=== PATIENT | female | born 1970 | race Caucasian/White ===

== ENCOUNTER 2024-06-09 13:26 | Outpatient (OUT) | payer OTHER, SELFPAY ==
--- NOTE | 2024-06-09 11:45 | VEINCLINIC_ITS ---
Documented by User: Arianna King RN 06/09/24 14:29 Vital Signs 06/09/24 13:46 Height 5 ft 5 in Weight 79.379 kg BMI 29.1 BP 120/78 BP Location Right Brachial BP Position Sitting BP Cuff Size Adult BP Source Manual Cuff Respiration 16 Pulse 68 Pulse Source Monitor Pulse Oximetry (%) 98 Oxygen Delivery Method Room Air Comment The patient's blood pressure is elevated. Varicose Veins Patient in this day for comprehensive consult for bilateral painful varicose veins. Referred by Dr. Merle Hernandez. Has been having BLE swelling for the past year. Worsening in the past few weeks with pain. Has tried compression stockings for 2 weeks with little to no relief. Patient is on her feet about 8-10 hours per day. Mele Grande MD personally performed the services described in this documentation, as scribed by Arianna King RN in my presence and it is both accurate and complete. Arianna Grande RN, am scribing for, and in the presence of, Dr. Mele Barrera and in the presence of the patient. thigh: bilateral, knee: bilateral, calf: bilateral, ankle: bilateral and chavez: bilateral aching, cramping, sharp and tender 2 months Worsened in recent months: Yes walking analgesics Reports muscle spasms of leg, fatigue, restless legs, limb pain, edema and leg edema History of lower extremity trauma: No Superficial thrombophlebitis: No Family history of varicose veins: unknown Has patient had previous lower extremity venous surgery: No Patient has previously received the following treatment(s) for lower extremity varicose veins: Reports none Does patient have a history of : yes Does patient intend to have future pregnancies: no Has patient had lower extremity venous scan with relux testing: Yes Support hose used: Yes Problems walking or doing physical activity: Yes How does it affect you: difficulty walking Do you walk much: Yes Do you stand much: Yes Review of Systems ROS Narrative Mele Grande MD personally performed the services described in this documentation, as scribed by Arianna King RN in my presence and it is both accurate and complete. Arianna Grande RN, am scribing for, and in the presence of, Dr. Mele Barrera and in the presence of the patient. Status of ROS 10 or more systems reviewed and unremark able except as noted in history and below Cardiovascular Reports: edema and swelling of feet/ankles Musculoskeletal Reports: extremity pain, extremity swelling, joint pain, joint swelling and muscle cramps PFSH PFSH Medical History (Updated 06/09/24 @ 14:17 by Arianna King RN) Pain due to varicose veins of both lower extremities ?I83.813 - Varicose veins of bilateral lower extremities with pain (ICD-10) Anxiety and depression ?F41.9 - Anxiety disorder, unspecified (ICD-10) ?F32.A - Depression, unspecified (ICD-10) Surgical History (Updated 06/09/24 @ 13:57 by Arianna King RN) H/O carpal tunnel repair ?Z98.890 - Other specified postprocedural states (ICD-10) Family History (Updated 06/09/24 @ 13:57 by Arianna King RN) Other Family history not known due to adoption Social History (Updated 06/09/24 @ 13:58 by Arianna King RN) Within the past year, how often did you have a drink containing alcohol: monthly or less Within the past year, how often did you have six or more drinks on one occasion: never Do you use any of these nicotine containing products: vaping products Non-prescribed substance use: denies use Meds Home Medications and Allergies Home Medications ?Medication ?Instructions ?Recorded ?Confirmed ?Type diclofenac sodium 75 mg 75 mg PO BID 06/09/24 06/09/24 History tablet,delayed release escitalopram oxalate 10 mg tablet 10 mg PO DAILY 06/09/24 06/09/24 History (Lexapro) hydroxyzine HCl 25 mg tablet 25 mg PO BID 06/09/24 06/09/24 History Allergies Allergy/AdvReac Type Severity Reaction Status Date / Time No Known Drug Allergies Allergy Unverified 06/09/24 14:01 Exam Narrative Exam Narrative: IMele MD personally performed the services described in this documentation, as scribed by Arianna King RN in my presence and it is both accurate and complete. IArianna RN, am scribing for, and in the presence of, Dr. Mele Barrera and in the presence of the patient. Constitutional Documenting provider has reviewed patient's vital signs: yes Common normals: oriented x3 Nutritional appearance: overweight Lymph Lymphatic: no lymphedema noted Cardio Peripheral pulses: posterior tibial pulses present and dorsalis pedis pulses present Extremity General: calf tenderness, edema and other findings Right lower extremity: lower leg Right lower leg: inspection and palpation Left lower extremity: lower leg Left lower leg: inspection and palpation Neuro Common normals: oriented x3 Psych Appearance: unkempt Attitude: calm Speech: normal speech Mood and affect: flat affect Attention/concentration: attention grossly impaired Other: Patient keeps eyes closed during 80% of evaluation. When nurse walked out to waiting room to bring patient back in room her eyes were closed and her head was tilted back against the wall. Her paperwork she did not even complete writing her first name. She arouses to voice easily throughout exam and reports she did not get much sleep last night and she took pain medication today for her leg. Assessment and Plan Assessment and Plan (1) Pain due to varicose veins of both lower extremities: Plan Explained vein anatomy and physiology to patient. Explained the development of varicose veins to patient.? Explained varicose vein treatments to patient, including laser ablation, microfoam chemical ablation (Varithena), injection sclerotherapy and microphlebectomy.? Explained potential risks and benefits of varicose vein treatments.? Patient verbalizes understanding and wants to pursue varicose vein treatment.? Dr. Mercer examines patient and reviews results of bilateral leg reflux u/s.? Patient and Dr. Mercer creates a plan of care.? Patient also agrees to purchase bilateral thigh high compression stockings and wear them as educated.? Patient also educated on exercise and rest elevation of bilateral legs. Patient will need to wear compression stockings for 3 months then schedule follow up. IMele MD personally performed the services described in this documentation, as scribed by Arianna King RN in my presence and it is both accurate and complete. IArianna RN, am scribing for, and in the presence of, Dr. Mele Barrera and in the presence of the patient. Documented by User: Madhuri Daily 06/09/24 15:39 Vital Signs 06/09/24 13:46 Height 5 ft 5 in Weight 79.379 kg BMI 29.1 BP 120/78 BP Location Right Brachial BP Position Sitting BP Cuff Size Adult BP Source Manual Cuff Respiration 16 Pulse 68 Pulse Source Monitor Pulse Oximetry (%) 98 Oxygen Delivery Method Room Air Comment The patient's blood pressure is elevated. PFSH PFSH Medical History (Updated 06/09/24 @ 14:17 by Arianna King RN) Pain due to varicose veins of both lower extremities ?I83.813 - Varicose veins of bilateral lower extremities with pain (ICD-10) Anxiety and depression ?F41.9 - Anxiety disorder, unspecified (ICD-10) ?F32.A - Depression, unspecified (ICD-10) Surgical History (Updated 06/09/24 @ 13:57 by Arianna King RN) H/O carpal tunnel repair ?Z98.890 - Other specified postprocedural states (ICD-10) Family History (Updated 06/09/24 @ 13:57 by Arianna King RN) Other Family history not known due to adoption Social History (Updated 06/09/24 @ 13:58 by Arianna King RN) Within the past year, how often did you have a drink containing alcohol: m onthly or less Within the past year, how often did you have six or more drinks on one occasion: never Do you use any of these nicotine containing products: vaping products Non-prescribed substance use: denies use Meds Home Medications and Allergies Home Medications ?Medication ?Instructions ?Recorded ?Confirmed ?Type diclofenac sodium 75 mg 75 mg PO BID 06/09/24 06/09/24 History tablet,delayed release escitalopram oxalate 10 mg tablet 10 mg PO DAILY 06/09/24 06/09/24 History (Lexapro) hydroxyzine HCl 25 mg tablet 25 mg PO BID 06/09/24 06/09/24 History Allergies Allergy/AdvReac Type Severity Reaction Status Date / Time No Known Drug Allergies Allergy Unverified 06/09/24 14:01 Results Imaging Venous US: Radiologist's impression: Severe reflux in bilateral GSVs, AASVs, and right SSV, along with multiple varicose veins bilateral. 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 IMele MD personally performed the services described in this documentation, as scribed by Arianna King RN in my presence and it is both accur ate and complete. I, Arianna King RN, am scribing for, and in the presence of, Dr. Mele Barrera and in the presence of the patient. Assessment and Plan Assessment and Plan (1) Pain due to varicose veins of both lower extremities: Plan Explained vein anatomy and physiology to patient. Explained the development of varicose veins to patient.? Explained varicose vein treatments to patient, including laser ablation, microfoam chemical ablation (Varithena), injection sclerotherapy and microphlebectomy.? Explained potential risks and benefits of varicose vein treatments.? Patient verbalizes understanding and wants to pursue varicose vein treatment.? Dr. Barrera examines patient and reviews results of bilateral leg reflux u/s.? Patient and Dr. Barrera creates a plan of care that consists of EVLT bilateral GSV, bilateral AASV, and right SSV and Varithena/microfoam of bilateral legs.? Patient also agrees to purchase bilateral thigh high compression stockings and wear them as educated.? Patient also educated on exercise and rest elevation of bilateral legs. Patient will need to wear compression stockings for 3 months then schedule follow up. IMele MD personally performed the services described in this documentation, as scribed by Arianna King RN in my presence and it is both accurate and complete. I, Arianna King RN, am scribing for, and in the presence of, Dr. Mele Barrera and in the presence of the patient.
--- NOTE | 2024-06-09 11:46 | W.VEIN ---
Discharge Plan Discharge Disposition: Home, Self-Care Outpatient Diagnostics: [facility] Facility EST LMTD (Routine) Timeframe: 1 Year Facility: [facility] - Location: [facility] Ordered By: Mele Barrera Plan of Treatment: compression stockings for 3 months then follow up with physcian Patient Instructions: Endovenous Ablation (GEN) Print Language: Sri Lankan
[2024-06-09 13:46] VITALS: BP 120/78; PULSE 68; O2SAT 98; BMI 29.1
--- NOTE | 2024-06-09 13:50 | VEIN_ITS ---
Patient Name: LUNA MCCLENDON MR#: [id number] : 1970 Exam Date: 06/09/2024 Ordering Doctor: DR DAGMAR BREWER M.D. RADIOLOGY REPORT PROCEDURE: VC EXT VENOUS REFLUX PUJA LMTD COMPARISON: None. INDICATIONS: I83.813 Painful varicose veins bilateral TECHNIQUE: Duplex imaging of the lower extremity to assess the deep and superficial venous system for the presence of deep or superficial venous incompetence and to document the location and severity of disease. The study includes evaluation of the great saphenous vein (GSV), anterior accessory saphenous vein (AASV) and small saphenous vein (SSV). Patient scanned in reverse Trendelenburg and standing. FINDINGS: RIGHT LOWER EXTREMITY: Saphenofemoral Junction Reflux: Yes 6.8mm 2.2 sec GSV: Diam (mm) Reflux/ Time (sec) Proximal Thigh 5.9 Yes 3.1 Mid Thigh 7.4 Yes 4.8 Distal Thigh 7.2 Yes 2.8 Prox Calf 5.3 Yes 0.6 Mid Calf 3.7 Yes 0.6 Saphenopopliteal Junction Reflux: 5.6mm Yes 1.1 SSV: Proximal Calf 5.5 Yes 0.5 Mid Calf 7.3 Yes 4.5 AASV: Proximal Thigh 5.5 Yes 0.8 Mid Thigh 3.8 Yes 0.6 Distal Thigh Thrombi: Partial thrombus in mid SSV. Compressibility: Partial compression of mid SSV. Flow: Mild deep venous reflux. Preforator: Dist/med lower leg/ankle measures 5.3 mm with 1.5s reflux. Distal medial lower leg 3.2 mm with 0.9s reflux. Tech Note: SSV is tortuous approximately 8-9 cm from SPJ. Incompetent varicose vein medial knee measures 8.0 mm with 4.4s reflux. Varicose vein mid posterior calf measures 5.8 mm with 4.7s reflux. Varicose vein mid lateral thigh measures 5.9 mm with 2.4s reflux. Varicose vein mid lateral calf measures 4.8 mm with 1.4s reflux. LEFT LOWER EXTREMITY: Saphenofemoral Junction Reflux: Yes 7.9 mm 0.7 sec GSV: Diam (mm) Reflux/Time (sec) Proximal Thigh 5.8 Yes 1.2 Mid Thigh 5.5 Yes 1.2 Distal Thigh 5.2 Yes 0.9 Prox Calf 4.9 Yes 3.3 Mid Calf 4.5 Yes 0.4 Saphenopopliteal Junction Relux: 3.4 mm No SSV: Proximal Calf 1.9 No Mid Calf 4.2 Yes 0.7 AASV: Proximal Thigh 6.0 Yes 1.9 Mid Thigh 4.9 Yes 1.1 Distal Thigh Thrombi: Thrombus of SSV prox- mid. Compressibility: Flow: Moderate deep venous reflux. Sewage Screen Operator: Distal medial lower leg 4.8 mm with 1.1s reflux. Mid medial lower leg 4.1 mm with 2.1s reflux. Mid post calf 3.9 mm with 1.0s reflux. Tech Note: Incompetent varicose vein distal anterior/medial thigh measures 4.5 mm with 2.9s reflux. Varicose vein mid medial calf measures 4.0 mm with 0.8s reflux. CONCLUSION: 1. Abnormally dilated incompetent bilateral great saphenous veins, bilateral anterior accessory saphenous veins, and right small saphenous vein. 2. 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 Dictated by: Dagmar Brewer M.D. on 06/09/2024 at 14:51 Approved by: Dagmar Brewer M.D. on 06/09/2024 at 15:52
--- NOTE | 2024-06-09 13:50 | VEIN_ITS ---
Patient Name: LUNA MCCLENDON MR#: [id number] : 1970 Exam Date: 06/09/2024 Ordering Doctor: DR DAGMAR BREWER M.D. RADIOLOGY REPORT PROCEDURE: [facility] FACILITY EST [facility] - OFFICE VISIT INITIAL COMPARISON: None. PROGRESS NOTES: [age] year old female who presents with a 1 year history of lower extremity pain, swelling, cramping, spasm, fatigue. The patient's leg symptoms symmetric bilaterally. There has been a progression of symptoms over the past 5 months. This increases with prolonged like dependency. The patient describes an improvement with exercise and analgesics. The patient denies any signs and symptoms to suggest arterial ischemia. The patient describes a family history for: Unknown/patient adopted. The patient has drinking and smoking history of occasional alcohol consumption. No tobacco use. Patient does use of vaping products.. Patient has a past medical history significant for none pertinent. The patient denies a history of deep venous thrombus or pulmonary embolus. See separate history and physical for medication list. No prior treatment for varicose or spider veins. Two week use of compression stockings. After review of nurse notes, history and physical exam I discussed at length the pathophysiology of venous hypertension and possible treatments, therapies and strategies available. We discussed at length the importance of elevating the lower extremities above the level of the heart, increased physical activity and compression stocking use. Ultrasound venous reflux study performed today was discussed at length with the patient. The report demonstrates abnormally dilated and markedly incompetent great saphenous veins bilaterally, anterior accessory saphenous veins bilaterally, and right small saphenous vein.. PHYSICAL EXAM: The right leg demonstrates several varicosities, numerous spider veins, no ulceration, moderate edema, no skin discoloration. The left leg demonstrates several varicosities, numerous spider veins, no ulceration, moderate edema, no skin discoloration. Both thighs, legs and feet were symmetrically warm to the touch. Good posterior tibial and dorsalis pedis pulses were present bilaterally. VEIN/VC Facility EST Comprehensive IMPRESSION: 1. Bilateral lower extremity venous insufficiency 2. Bilateral lower extremity varicose veins 3. Moderate bilateral lower extremity subcutaneous edema 4. No flow significant arterial disease 5. CEAP: C3, AP, , VT PLAN: 1. Continued use of compression stockings 2. Elevated legs and increased physical activity symptomatic relief 3. Endovenous laser ablation of left great saphenous, right great saphenous, left anterior accessory saphenous, right anterior accessory saphenous, left small saphenous veins. 4. Microfoam chemical ablation of the incompetent branch saphenous varicosities. 5. Sclerotherapy. Nurse notes, history and physical were reviewed and confirmed, see attached forms. The nurse was present throughout the physical exam and consultation Dictated by: Dagmar Brewer M.D. on 06/09/2024 at 15:52 Approved by: Dagmar Brewer M.D. on 06/09/2024 at 16:00
--- NOTE | 2024-06-09 15:39 | P.DS_ITS ---
Discharge Plan Discharge Disposition: Home, Self-Care Outpatient Diagnostics: [facility] Facility EST LMTD (Routine) Timeframe: 1 Year Facility: [facility] - Location: Vein Center Ordered By: Mele Barrera Plan of Treatment: compression stockings for 3 months then follow up with physcian Patient Instructions: Endovenous Ablation (GEN) Print Language: Montenegrin Discharge Date/Time: 06/09/24 15:43
== END 2024-06-09 15:43 | disposition home or self-care (01) ==
PROVIDERS: PCP Nurse Practitioner Family; Visit Provider Nurse Practitioner Family
DX: I83.813 Varicose veins of bilateral lower extremities with pain (principal)
CPT/HCPCS: 93970; G0463

== ENCOUNTER 2024-06-14 08:40 | Outpatient (OUT) | payer OTHER, SELFPAY ==
--- OUTSIDE RECORDS SUMMARY | 2024-06-14 09:05 | XMS_ITS | CCD ---
Author Organization [facility] Inform ion Partnership [facility] Care Team Providers Care Regulatory Affairs Associate Name Role Phone REQUEST, NONE LISTED Primary Care Unavailable BRANDI BELTRAN Admitting Unavailable BRANDI BELTRAN Attending Unavailable MELE BARRERA Consulting Unavailable BRANDI BELTRAN Consulting Unavailable TIFFANY ARZOLA Attending Unavailable Aroldo Londono Attending Unavailab Aroldo Moraes Admitting Unavailab mike Problems Problem Classification Problem Date Documented Da te Episodic/Chronic External cause codes: Fall (1 source) Fall on same level, unspecified, initial encounter; Translations: [FALL SAME LEVEL UNSPECIFIED INITIAL] Onset: 11-11-2018 Other connective tissue disease (3 sources) Pain in left upper arm; Translations: [PAIN IN LEFT UPPER ARM] Onset: 11-09-2018 Episodic Sprains and strains (1 source) Unspecified sprain of left wrist, initial encounter; Translations: [UNSPECIFIED SPRAIN LT WRIST INITIAL] Onset: 11-11-2018 Episodic Results Test Name Value Interpretation Reference Range Facil ity XR SHOULDER LEFT (MIN 2 VIEW S)on 07-11-2021 XR SHOULDER LEFT (MIN 2 VIEWS) EXAMINATION: 3 XRAY VIEWS OF THE LEFT SHOULDER 07/11/2021 10:56 am COMPARISON: 10/01/2014 HISTORY: ORDERING SYSTEM PROVIDED HISTORY: Left shoulder pain TECHNOLOGIST PROVIDED HISTORY: Left shoulder pain 50-year-old female with left shoulder pain FINDINGS: Subcortical cystic changes at the humeral head. Visualized left-sided ribs appear intact. No acute fracture or dislocation. Left AC and glenohumeral joints grossly unremarkable. IMPRESSION: No acute fracture or dislocation. Interpreted by: Shon Majano MD Signed by: Shon Majano MD 07/11/21 Final result Normal [facility] XR WRIST LT MIN 3 Von 2018 XR WRIST LT MIN [address] [place] [address] Patient: HERMES DIETRICH Exam Date: 11/09/2018 : 1970 Gender:F Ordering : DR. BRANDI BELTRAN . Admission #: [id number] Family : Order #: [id number] CLICK HERE TO VIEW EXAM RADIOLOGY REPORT PROCEDURE: RADIOGRAPH WRIST LEFT MIN 3 VIEWS COMPARISON: None. INDICATIONS: Acute left lateral wrist pain after fall FINDINGS: BONES: Mild degenerative changes of the scaphoid and suspected small cyst within the distal aspect. The scapholunate joint is prominent, but within normal limits. No acute fracture dislocation. SOFT TISSUES: No visible soft tissue swelling or radiopaque foreign body. OTHER: Negative. CONCLUSION: 1. No acute bone abnormality. 2. Mild degenerative changes. Dictated by: Mele Barrera M.D. on 11/09/2018 at 08:11 Approved by: Mele Barrera M.D. on 11/09/2018 at 08:15 Normal [facility] Encounters Encounter Date Encounter Type Care Provider Facility Start: 02-12-2023 ambulatory Aroldo Rodriguez acility:[facility] Start: 07-11-2021 End: 07-11-2021 Emergency department patient visit [facility] Start: 11-09-2018 End: 11-09-2018 Patient encounter procedure NONE LISTED REQUEST Facility: Payers Date Payer Category Payer Self-pay 2021 Unknown [id number] 1970 Unknown [id number] 1970 Unknown [id number] 1959 Self-pay [id number] Summary Purpose Family History No Family History Records FoundNo Family History Records FoundNo Family History Records Found Advance Directives No Advanced Directives Records FoundNo Advanced Directives Records FoundNo Advanced Directives Records Found Additional Source Comments INFORMATION SOURCE (unrecogn ized section and content) DATE CREATED AUTHOR 11/14/2018 [facility] DATE CREATED AUTHOR AUTHOR'S ORGANIZ ATION 07/12/2021 [facility] DATE CREATED AUTHOR AUTHOR'S ORGANIZ ATION 07/25/2023 [facility] FOR RECORDS PERTAINING TO PATIENTS WHO ARE OR HAVE BEEN ENROLLED IN A CHEMICAL DEPENDENCY/SUBSTANCEABUSE PROGRAM, SOME INFORMATION MAY BE OMITTED. This clinical summary was aggregated from multiple sources. Caution should be exercised in using it in the provision of clinical care. This summary normalizes information from multiple sources, and as a consequence, information in this document may materially change the coding, format and clinical context of patient data. In addition, data may be omitted in some cases. CLINICAL DECISIONS SHOULD BE BASED ON THE PRIMARY CLINICAL RECORDS. [facility] [employer] provides no warranty or guarantee of the accuracy or completeness of information in this document.
[2024-06-14 09:59] LABS: Basophils Percent Auto 0.2 % (0.2-2.0); Hematocrit 40.8 % (36.0-48.0); Hemoglobin 13.5 g/dL (12.0-16.0); Immature Granulocytes Abs Auto 0.01 10^3/uL (0.00-0.03); Immature Granulocytes Pct Auto 0.2 % (0.0-0.5); Lymphocytes Absolute Auto 1.2 10^3/uL (1.2-3.8); Lymphocytes Percent Auto 23.1 % (20.5-60.0); Mean Corpuscular HGB Conc 33.1 g/dL (29.9-35.2); Mean Corpuscular Hemoglobin 29.9 pg (26.7-34.0); Mean Corpuscular Volume 90.3 fL (81.0-99.0); Mean Platelet Volume 10.4 fL (9.5-13.5); Monocytes Absolute Auto 0.5 10^3/uL (0.3-0.8); Monocytes Percent Auto 10.5 % (1.7-12.0); Neutrophils Absolute Auto 3.3 10^3/uL (1.4-6.5); Platelet Count 242 10^3/uL (150-450); Red Blood Count 4.52 10^6/uL (4.20-5.40); Red Cell Distribution Width 12.6 % (11.0-15.0); White Blood Count 5.1 10^3/uL (4.0-11.0)
[2024-06-14 10:18] LABS: Estimated Average Glucose 100 mg/dL; Glycohemoglobin A1C 5.1 % (4.5-6.2)
[2024-06-14 10:35] LABS: Alanine Aminotransferase 36 U/L (14-59); Albumin Globulin Ratio 0.8; Albumin Level 2.4 g/dL (3.4-5.0); Alkaline Phosphatase 63 U/L (46-116); Anion Gap 10.7; Aspartate Amino Transferase 22 U/L (15-37); BUN Creatinine Ratio 21.1; Bilirubin Total 0.4 mg/dL (0.2-1.0); Calcium 8.4 mg/dL (8.5-10.1); Carbon Dioxide 28.4 mmol/L (21.0-32.0); Chloride 110 mmol/L (98-107); Chol HDL Ratio 4.3; Cholesterol 185 mg/dL (<=200); Estimated GFR (African America >60 (>=60 mL/min/1.73m^2); Estimated GFR (Non-African Ame >60 (>=60 mL/min/1.73m^2); Free T3 1.83 pg/mL (2.18-3.98); Globulin 3.2 g/dL; Glucose 102 mg/dL (74-106); HDL Cholesterol 43 mg/dL (40-60); LDL Cholesterol Calculated 116.6 mg/dL; Potassium 4.1 mmol/L (3.5-5.1); Sodium 145 mmol/L (136-145); Thyroid Stimulating Hormone 1.642 uIU/mL (0.358-3.740); Total Protein 5.6 g/dL (6.4-8.2); Triglycerides 127 mg/dL (<=150); VLDL CHOLESTEROL 25.4 mg/dL
[2024-06-15 11:10] LABS: Insulin 3.8 uIU/mL (2.6-24.9)
== END 2024-06-14 08:41 | disposition home or self-care (01) ==
LOC: LAB 08:49
PROVIDERS: PCP Nurse Practitioner Family; Visit Provider Nurse Practitioner Family
DX: Z00.00 Encounter for general adult medical examination without abnormal findings (principal)
CPT/HCPCS: 36415; 80053; 80061; 83036; 83525; 84436; 84443; 84481; 85025

== ENCOUNTER 2024-10-26 16:25 | Emergency (ER) | payer OTHER, SELFPAY ==
[2024-10-26 16:33] VITALS: BP 143/99; PULSE 77; TEMP 36.8; O2SAT 98; BMI 30.8
--- NOTE | 2024-10-26 16:38 | ED.GENADUL1 ---
HPI HPI - General Adult General Chief complaint: Extremity Injury, Upper Stated complaint: FALL Time Seen by Provider: 10/26/24 16:28 Source: patient Mode of arrival: walk-in Limitations: no limitations History of Present Illness HPI narrative: 54-year-old female presents to the emergency department for pain in her right hand and wrist. She fell 2 or 3 weeks ago and it has been hurting since. She points mostly to the thenar eminence and the dorsum of the wrist. No other injury was sustained. It hurts more to move it. She has not yet sought medical care. Related Data Home Medications ?Medication ?Instructions ?Recorded ?Confirmed diclofenac sodium 75 mg 75 mg PO BID 06/09/24 10/26/24 tablet,delayed release escitalopram oxalate 10 mg tablet 20 mg PO DAILY 06/09/24 10/26/24 (Lexapro) hydroxyzine HCl 25 mg tablet 25 mg PO BID 06/09/24 10/26/24 Allergies Allergy/AdvReac Type Severity Reaction Status Date / Time No Known Drug Allergies Allergy Unverified 10/26/24 16:38 Opioid HPI Opioid Management Most Recent Opioid Data: No Data to Display Review of Systems ROS Narrative A ten point review of systems is negative except as noted above. PFSH [facility] Medical History (Updated 10/26/24 @ 17:16 by Terrell Vela MD) Pain due to varicose veins of both lower extremities ?I83.813 - Varicose veins of bilateral lower extremities with pain (ICD-10) Anxiety and depression ?F41.9 - Anxiety disorder, unspecified (ICD-10) ?F32.A - Depression, unspecified (ICD-10) Surgical History (Updated 06/09/24 @ 13:57 by Arianna King RN) H/O carpal tunnel repair ?Z98.890 - Other specified postprocedural states (ICD-10) Family History (Updated 06/09/24 @ 13:57 by Arianna King RN) Other Family history not known due to adoption Social History (Updated 06/09/24 @ 13:58 by Arianna King RN) Within the past year, how often did you have a drink containing alcohol: monthly or less Within the past year, how often did you have six or more drinks on one occasion: never Do you use any of these nicotine containing products: vaping products Non-prescribed substance use: denies use Little interest or pleasure in doing things: not at all Feeling down, depressed, or hopeless: not at all Exam Narrative Exam Narrative: Nurses note and vital signs reviewed and patient is not hypoxic. General: The patient appears well and in no apparent distress. Patient is resting comfortably on cart. Skin: Warm, dry, no pallor noted. There is no rash noted. Head: Normocephalic, atraumatic Eye: Normal conjunctiva, no drainage Ears, Nose, Mouth, and Throat: oral mucosa is moist. Nares patent. Cardiovascular: Regular Rate and Rhythm Respiratory: Patient is in no distress, no accessory muscle use, lungs are clear to auscultation, no wheezing, rales or rhonchi Back: non-tender GI: Soft and nontender Musculoskeletal: The right hand and wrist are examined. The fingers have full range of motion as does the wrist. She has some diffuse tenderness in the thenar eminence and the dorsum of the wrist. Skin intact. Neurological: A&O, normal speech Psychiatric: Cooperative Constitutional Vital Signs, click to edit/add: Last Vital Signs Temp 98.3 F 10/26/24 16:33 Pulse 77 10/26/24 16:33 Resp 16 10/26/24 16:33 BP 143/99 H 10/26/24 16:33 Pulse Ox 98 10/26/24 16:33 O2 Del Method Room Air 10/26/24 16:33 Course Vital Signs Vital signs: Vital Signs Temperature 98.3 F 10/26/24 16:33 Pulse Rate 77 10/26/24 16:33 Respiratory Rate 16 10/26/24 16:33 Blood Pressure 143/99 H 10/26/24 16:33 Pulse Oximetry 98 10/26/24 16:33 Oxygen Delivery Method Room Air 10/26/24 16:33 Temperature 98.3 F 10/26/24 16:33 Pulse Rate 77 10/26/24 16:33 Respiratory Rate 16 10/26/24 16:33 Blood Pressure 143/99 H 10/26/24 16:33 Pulse Oximetry 98 10/26/24 16:33 Oxygen Delivery Method Room Air 10/26/24 16:33 Medical Decision Making MDM Narrative Medical decision making narrative: X-rays per radiologist showed no acute findings. Wrist splint applied, application checked by me and found to be appropriate, she is neurovascular intact. Treatment diagnosis and follow-up were discussed with the patient. Differential Diagnosis Differential Diagnosis: Sprain, strain, fracture Imaging Data Right wrist and hand x-rays: Radiologist's impression: Soft tissue swelling without acute osseous abnormality evident. Mild to moderate degenerative changes Discharge Plan Discharge Chief Complaint: Extremity Injury, Upper Clinical Impression: Right wrist sprain Patient Disposition: Home, Self-Care Time of Disposition Decision: 17:16 Prescriptions / Home Meds: No Action escitalopram oxalate [Lexapro] 10 mg tablet 20 mg PO DAILY hydroxyzine HCl 25 mg tablet 25 mg PO BID diclofenac sodium 75 mg tablet,delayed release (DR/EC) 75 mg PO BID Print Language: Nigerien Instructions: Wrist Sprain (ED) Referrals: MAGALIE GONZALEZ [Primary Care Provider] - 1 week
--- OUTSIDE RECORDS SUMMARY | 2024-10-26 16:40 | XMS_ITS | CCD ---
Author Organization [facility] Inform ion Partnership [facility] Care Team Providers Care Registered Nurses Name Role Phone REQUEST, NONE LISTED Primary [...] Shon Majano MD 07/11/21 Final result [facility] XR WRIST LT MIN 3 Von 2018 XR WRIST LT MIN 3 [address] [place] [address] Patient: HERMES DIETRICH Exam Date: 11/09/2018 : 1970 Gender:F Ordering : DR. BRANDI BELTRAN . Admission #: [id number] Family : Order #: [id number] CLICK HERE TO VIEW EXAM RADIOLOGY REPORT [...] Barrera M.D. on 11/09/2018 at 08:15 Normal [facility] Encounters Encounter Date Encounter Type Care Provider Facility Start: 02-12-2023 ambulatory Aroldo Rodriguez acility:[facility] Start: 07-11-2021 End: 07-11-2021 Emergency department patient visit [facility] Start: 11-09-2018 End: 11-09-2018 Patient encounter procedure NONE LISTED REQUEST Facility: Payers Date Payer Category Payer Self-pay 2021 Unknown [id number] 1970 Unknown [id number] 1970 Unknown [id number] 1959 Self-pay [id number] Summary Purpose Family History No Family History Records FoundNo Family History Records FoundNo Family History Records Found Advance Directives No Advanced Directives Records FoundNo Advanced Directives Records FoundNo Advanced Directives Records Found Additional Source Comments INFORMATION SOURCE (unrecogn ized section and content) DATE CREATED AUTHOR 11/14/2018 [facility] DATE CREATED AUTHOR AUTHOR'S ORGANIZ ATION 07/12/2021 [facility] DATE CREATED AUTHOR AUTHOR'S ORGANIZ ATION 07/25/[address] [facility] FOR RECORDS PERTAINING TO PATIENTS WHO [...] BE BASED ON THE PRIMARY CLINICAL RECORDS. [facility] [employer] provides no warranty or guarantee of the accuracy or completeness of information in this document.
--- NOTE | 2024-10-26 16:46 | PC.NURSE ---
Pain to right hand and wrist, no redness, swelling or bruising at site.
== END 2024-10-26 17:31 | disposition home or self-care (01) ==
PROVIDERS: Emergency Provider Emergency Medicine; PCP Nurse Practitioner Family
DX: S63.501A Unspecified sprain of right wrist, initial encounter (principal); F17.290 Nicotine dependence, other tobacco product, uncomplicated; W19.XXXA Unspecified fall, initial encounter
CPT/HCPCS: 73110; 73130; 99283

== ENCOUNTER 2024-11-11 14:35 | Outpatient (OUT) | payer OTHER, SELFPAY ==
--- NOTE | 2024-11-11 | XR_ITS ---
[facility] [place] [id number] Patient Name: LUNA MCCLENDON MRN: [id number] date: 1970 Sex: F Assigned Patient Location: [facility] Current Patient Location: [facility] Accession/Order Number: [id number] Exam Date: 11/11/2024 16:11 Report Date: 11/11/2024 16:14 At the request of: MAGALIE GONZALEZ Procedure: XR wrist RT min 3V RIGHT WRIST - 3 views CLINICAL HISTORY: Posterior right wrist pain. Fall 3 weeks ago. COMPARISON: Right wrist series 10/26/2024 FINDINGS: Bones are grossly demineralized. No acute bony process is seen. Carpus demonstrates degenerative changes with widening of the scapholunate space similar to the prior study. There is stable presumed subluxation of the capitate with respect to the lunate. Negative ulnar variance a 3 mm. XR/XR wrist RT min 3V IMPRESSION: DEGENERATIVE CHANGES INVOLVING THE CARPUS WITH WIDENING OF THE SCAPHOLUNATE SPACE AND SUBLUXATION OF THE CAPITATE WITH RESPECT TO THE LUNATE SUGGESTIVE OF LIGAMENTOUS INJURY. NO FRACTURE IS SEEN. Impression dictated by: Gold Cottrell Jr., D.O.11/11/2024 4:14 PM Dictation Location: [employer] [facility] Electronically authenticated by: [id number] Y Date: 11/11/2024 16:14
== END 2024-11-11 14:36 | disposition home or self-care (01) ==
LOC: RAD 14:38
PROVIDERS: PCP Nurse Practitioner Family; Visit Provider Nurse Practitioner Family
DX: M25.531 Pain in right wrist (principal); M25.831 Other specified joint disorders, right wrist; M19.031 Primary osteoarthritis, right wrist
CPT/HCPCS: 73110

== ENCOUNTER 2024-11-22 19:15 | Emergency (ER) | payer OTHER, SELFPAY ==
[2024-11-22 19:19] VITALS: BP 150/106; PULSE 94; TEMP 36.6; O2SAT 100; BMI 31.6
--- NOTE | 2024-11-22 19:19 | ECG_ITS ---
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 Measurements Intervals Mccammon Rate: 78 P: 74 NE: 182 QRS: -28 QRSD: 80 T: 69 QT: 386 QTc: 419 Interpretive Statements 1100 Sinus rhythm 7202 Moderate left axis deviation borderline ECG No previous ECG available for comparison Electronically Signed On 11-23-2024 19:55:52 EDT by BOBBI CAMP M.D.
--- NOTE | 2024-11-22 19:27 | ED_ITS ---
HPI HPI - General Adult General Chief complaint: Neuro Symptoms/Deficit Stated complaint: htn anxiety Time Seen by Provider: 11/22/24 19:20 Source: patient and caregiver Mode of arrival: ambulance Limitations: no limitations History of Present Illness HPI narrative: patient presents concerned her BP is elevated. BP at work 130s/90s. No headache or chest pain. No weakness or dyspnea. she took her BP again at the [facility] and it was elevated at 150/100 and she decided to come in for evaluation she is wearing a splint on the right wrist and states she has been using her left hand more now because of the problem with the right wrist. states the left hand feels tingling but not weak. No tingling of the left arm or elsewhere Related Data Home Medications ?Medication ?Instructions ?Recorded ?Confirmed diclofenac sodium 75 mg 75 mg PO BID 06/09/24 10/26/24 tablet,delayed release escitalopram oxalate 10 mg tablet 20 mg PO DAILY 06/09/24 11/22/24 (Lexapro) hydroxyzine HCl 25 mg tablet 25 mg PO BID 06/09/24 10/26/24 Allergies Allergy/AdvReac Type Severity Reaction Status Date / Time No Known Drug Allergies Allergy Verified 11/22/24 19:23 Opioid HPI Opioid Management Most Recent Opioid Data: No Data to Display Review of Systems ROS Status of ROS 10 or more systems reviewed and unremark able except as noted in history and below [facility] Medical History (Updated 11/22/24 @ 20:28 by Eber Wagner MD) Pain due to varicose veins of both lower extremities ?I83.813 - Varicose veins of bilateral lower extremities with pain (ICD-10) Anxiety and depression ?F41.9 - Anxiety disorder, unspecified (ICD-10) ?F32.A - Depression, unspecified (ICD-10) Surgical History (Updated 06/09/24 @ 13:57 by Arianna King RN) H/O carpal tunnel repair ?Z98.890 - Other specified postprocedural states (ICD-10) Family History (Updated 06/09/24 @ 13:57 by Arianna King RN) Other Family history not known due to adoption Social History (Updated 06/09/24 @ 13:58 by Arianna King RN) Within the past year, how often did you have a drink containing alcohol: monthly or less Within the past year, how often did you have six or more drinks on one occasion: never Do you use any of these nicotine containing products: vaping products Non-prescribed substance use: denies use Little interest or pleasure in doing things: not at all Feeling down, depressed, or hopeless: not at all Exam Constitutional Vital Signs, click to edit/add: Last Vital Signs Temp 97.8 F 11/22/24 19:19 Pulse 94 H 11/22/24 19:19 Resp 18 11/22/24 19:19 BP 150/106 H 11/22/24 19:19 Pulse Ox 100 11/22/24 19:19 O2 Del Method Room Air 11/22/24 19:19 Common normals: no apparent distress, average body habitus, oriented x3, no limitations, healthy appearing, alert and well nourished HENMT Common normals: normocephalic and head/scalp atraumatic Eye Common normals: PERRL, EOMs intact bilaterally and conjunctivae normal Respiratory Common normals: normal respiratory effort, no retractions, no use of accessory muscles and clear to auscultation bilaterally Cardio Common normals: regular rate, regular rhythm, S1 normal heart sound and S2 normal heart sound GI Common normals: Normal to inspection, nondistended, normoactive bowel sounds present, soft to palpation and non-tender Extremity Other: wrist splint of right wrist otherwise normal exam upper and lower extremities Neuro Common normals: oriented x3, CN's II-XII intact bilaterally, moves all extremities and no focal motor deficits Psych Appearance: grossly normal Course Vital Signs Vital signs: Vital Signs Temperature 97.8 F 11/22/24 19:19 Pulse Rate 94 H 11/22/24 19:19 Respiratory Rate 18 11/22/24 19:19 Blood Pressure 150/106 H 11/22/24 19:19 Pulse Oximetry 100 11/22/24 19:19 Oxygen Delivery Method Room Air 11/22/24 19:19 Temperature 97.8 F 11/22/24 19:19 Pulse Rate 94 H 11/22/24 19:19 Respiratory Rate 18 11/22/24 19:19 Blood Pressure 150/106 H 11/22/24 19:19 Pulse Oximetry 100 11/22/24 19:19 Oxygen Delivery Method Room Air 11/22/24 19:19 Medical Decision Making MDM Narrative Medical decision making narrative: patient presents concern about her BP. It was 130s/90s and this concerned her. states her watched informed her of the elevated BP. Arrived here asymptomatic with BP 150/106. Normal exam. Observed in the department without intervention and her BP decreased to 126/92. Patient advised to follow up with her PCP for recheck of her BP Discharge Plan Discharge Chief Complaint: Neuro Symptoms/Deficit Clinical Impression: Hypertension Patient Disposition: Home, Self-Care Prescriptions / Home Meds: No Action escitalopram oxalate [Lexapro] 10 mg tablet 20 mg PO DAILY hydroxyzine HCl 25 mg tablet 25 mg PO BID diclofenac sodium 75 mg tablet,delayed release (DR/EC) 75 mg PO BID Print Language: German Instructions: Hypertension (ED) Additional Instructions: follow up with your doctor this week for recheck Referrals: MAGALIE GONZALEZ [Primary Care Provider] - 1 week
--- OUTSIDE RECORDS SUMMARY | 2024-11-22 19:30 | XMS_ITS | CCD ---
Author Organization [facility] Inform ion Partnership [facility] Care Team Providers Care Hand Decorator Name Role Phone REQUEST, NONE LISTED Primary [...] Shon Majano MD 07/11/21 Final result Normal [facility] XR WRIST LT MIN 3 Von 2018 XR WRIST LT MIN 3 [address] [place] [address] Patient: HERMES DIETRICH Exam Date: 11/09/2018 : 1970 Gender:F Ordering : DR. BRANDI BELTRAN . Admission #: [id number] Family : Order #: [id number] CLICK HERE TO VIEW EXAM RADIOLOGY REPORT [...] Barrera M.D. on 11/09/2018 at 08:15 Normal [facility] Encounters Encounter Date Encounter Type Care Provider Facility Start: 02-12-2023 ambulatory Aroldo Rodriguez acility:[facility] Start: 07-11-2021 End: 07-11-2021 Emergency department patient visit [facility] Start: 11-09-2018 End: 11-09-2018 Patient encounter procedure NONE LISTED REQUEST Facility: Payers Date Payer Category Payer Self-pay 2021 Unknown [id number] 1970 Unknown [id number] 1970 Unknown [id number] 1959 Self-pay [id number] Summary Purpose Family History No Family History Records FoundNo Family History Records FoundNo Family History Records Found Advance Directives No Advanced Directives Records FoundNo Advanced Directives Records FoundNo Advanced Directives Records Found Additional Source Comments INFORMATION SOURCE (unrecogn ized section and content) DATE CREATED AUTHOR 11/14/2018 [facility] DATE CREATED AUTHOR AUTHOR'S ORGANIZ ATION 07/12/2021 [facility] DATE CREATED AUTHOR AUTHOR'S ORGANIZ ATION 07/25/2023 [facility] FOR RECORDS PERTAINING TO PATIENTS WHO ARE [...] BE BASED ON THE PRIMARY CLINICAL RECORDS. [facility] [employer] provides no warranty or guarantee of the accuracy or completeness of information in this document.
[2024-11-22 20:38] VITALS: BP 130/88
== END 2024-11-22 20:40 | disposition home or self-care (01) ==
PROVIDERS: Emergency Provider Internal Medicine; PCP Nurse Practitioner Family
DX: I10 Essential (primary) hypertension (principal); F17.290 Nicotine dependence, other tobacco product, uncomplicated
CPT/HCPCS: 93005; 99283

== ENCOUNTER 2025-05-31 10:17 | Outpatient (OUT) | payer SELFPAY ==
--- OUTSIDE RECORDS SUMMARY | 2025-02-14 11:30 | XMS_ITS ---
Author Organization [facility] Address [address] [place] [address] Care Team Providers Care Director Auto Name Role Phone Shashank Thompson Primary Care Provider Mele San Unavailable [phone] REASON FOR VISIT RIGHT SLAC WRIST Medications Medication SIG (Take, Route, Frequency, Duration) Notes Start Date End Date Status Wellbutrin SR Active Mobic 15 mg 1 tab(s) orally once a day for 45 days 12/13/2024 Active Lexapro Active Encounters Encounter Location Date Provider Diagnosis [facility] [address] [place] [address] [place] [id number] 02/14/2025 Mele Moss Plan Of Treatment No Information Progress Notes * LUNA MCCLENDON dDOB:[birth year] (54 yo F)Acc No.[id number]:02/14/2025 Patient: Raymundo LUNA MCKEE Provider: Kalani Moss MD :1970 A ge:54 Y S ex:Female Date:02/14/2025 Address:[address] [place], [place] [id number] Pcp:Shashank Thompson Subjective: * Chief Complaints: * 1 . RIGHT SLAC WRIST. * Medical History: * Medications: T aking Mobic 15 mg tablet 1 tab(s) orally once a day , Taking Lexapro , Taking Wellbutrin SR Objective: * Vitals: Assessment: Plan: * Treatment: Forms: * Images: * Electronic signature of Ilya Moss MD on 05/31/2025 at 10:20 AM EDT Sign off status: Pending * Provider: Kalani Moss MD Date: 0 02/14/2025 Generated for Heidi brito/Rickey/Ciaranitting on: 1 10:20 AM EDT
--- OUTSIDE RECORDS SUMMARY | 2025-05-31 10:21 | XMS_ITS | Clinical Summary ---
Author Organization [facility] Address [address] [place] [address], [address] [place] [address] Care Team Providers Care Supervisor Travel Trailer Name Role Phone Unavailable Primary Care Provider Unavailabl e Allergies No known active allergies Medications ibuprofen (ADVIL;MOTRIN) 600 MG tablet Take 1 tablet by mouth every 8 hours as needed for Pain 15 tablet 07/11/2021 Active Social History Tobacco Use Types Packs/Day Years Used Date Smoking Tobacco: Never Smokeless Tobacco: Never Comments No Sex and Gender Information Value Date Recorded Sex Assigned at Not on file Legal Sex Female 3:34 PM EST Gender Identity Not on file Sexual Orientation Not on file Last Filed Vital Signs Vital Sign Reading Time Taken Comments Blood Pressure 147/69 07/11/2021 10:17 AM EST Pulse 102 07/11/2021 10:14 AM EST Temperature 36.9 C (98.4 F) 07/11/2021 10:14 AM EST Respiratory Rate 16 07/11/2021 10:14 AM EST Oxygen Saturation 99% 07/11/2021 10:14 AM EST Inhaled Oxygen Concentration - - Weight 65.8 kg (145 lb) 07/11/2021 10:14 AM EST Height - - Body Mass Index - - Plan of Treatment Not on file Insurance [employer] [place] [id number] [employer] [facility] [place] [id number]
--- OUTSIDE RECORDS SUMMARY | 2025-05-31 10:21 | XMS_ITS | Clinical Summary ---
Author Organization [facility] Address [id number] [address] [place] [address] Care Team Providers Care Diamond Assorter Name Role Phone Unavailable Primary Care Provider Unavailabl e Social History Tobacco Use Types Packs/Day Years Used Date Smoking Tobacco: Never Assessed Childcare Answer Date Recorded Childcare Unknown 01/26/2019 Employment Answer Date Recorded Employment Unknown 01/26/2019 Comments Unknown Sex and Gender Information Value Date Recorded Sex Assigned at Not on file Legal Sex Female 7:06 PM EDT Gender Identity Not on file Sexual Orientation Not on file Plan of Treatment Health Maintenance Due Date Last Done Comments Depression Screening 1982 Tobacco Screening 1982 Adult BMI Screening 1988 DTaP,Tdap and Td Vaccines (1 - Tdap) 1989 Pap Smear 10/17/1991 Zoster (Shingles) Vaccine (1 of 2) 2020 Influenza Vaccine 04/18/2025 Medical Devices Not on file
--- OUTSIDE RECORDS SUMMARY | 2025-05-31 10:21 | XMS_ITS | Clinical Summary ---
Author Organization [facility] Address [address] [place] [address] Care Team Providers Care Continuous Drier Helper Name Role Phone Unavailable Primary Care Provider Unavailabl e Social History Tobacco Use Types Packs/Day Years Used Date Smoking Tobacco: Never Assessed Comments Unknown Sex and Gender Information Value Date Recorded Sex Assigned at Not on file Legal Sex Female 6:58 PM EDT Gender Identity Not on file Sexual Orientation Not on file Last Filed Vital Signs Vital Sign Reading Time Taken Comments Blood Pressure 136/103 12/03/2018 12:00 PM EDT Pulse - - Temperature - - Respiratory Rate - - Oxygen Saturation - - Inhaled Oxygen Concentration - - Weight 70.8 kg (156 lb) 12/03/2018 12:00 PM EDT Height 165.1 cm (5' 5 ) 12/03/2018 12:00 PM EDT Body Mass Index 25.96 12/03/2018 12:00 PM EDT Plan of Treatment Not on file
--- OUTSIDE RECORDS SUMMARY | 2025-05-31 10:23 | XMS_ITS | CCD ---
Author Organization [facility] Inform ion Partnership [facility] Care Team Providers Care Role Player Name Role Phone REQUEST, NONE LISTED Primary [...] Shon Majano MD 07/11/21 Final result Normal [facility] XR WRIST LT MIN 3 Von 2018 XR WRIST LT MIN 3 [address] [place] [address] Patient: HERMES DIETRICH Exam Date: 11/09/2018 : 1970 Gender:F Ordering : DR. BRANDI BELTRAN . Admission #: [id number] Family : Order #: [id number] CLICK HERE TO VIEW EXAM RADIOLOGY REPORT [...] Barrera M.D. on 11/09/2018 at 08:15 Normal [facility] Encounters Encounter Date Encounter Type Care Provider Facility Start: 02-12-2023 ambulatory Aroldo Rodriguez acility:[facility] Start: 07-11-2021 End: 07-11-2021 Emergency department patient visit [facility] Start: 11-09-2018 End: 11-09-2018 Patient encounter procedure NONE LISTED REQUEST Facility: Payers Date Payer Category Payer Self-pay 2021 Unknown [id number] 1970 Unknown [id number] 1970 Unknown [id number] 1959 Self-pay [id number] Summary Purpose Family History No Family History Records FoundNo Family History Records FoundNo Family History Records Found Advance Directives No Advanced Directives Records FoundNo Advanced Directives Records FoundNo Advanced Directives Records Found Additional Source Comments INFORMATION SOURCE (unrecogn ized section and content) DATE CREATED AUTHOR 11/14/2018 [facility] DATE CREATED AUTHOR AUTHOR'S ORGANIZ ATION 07/12/2021 [facility] DATE CREATED AUTHOR AUTHOR'S ORGANIZ ATION 07/25/2023 [facility] FOR RECORDS PERTAINING TO PATIENTS WHO ARE [...] BE BASED ON THE PRIMARY CLINICAL RECORDS. [facility] [employer] provides no warranty or guarantee of the accuracy or completeness of information in this document.
[2025-05-31 11:12] LABS: Hematocrit 42.6 % (36.0-48.0); Hemoglobin 14.5 g/dL (12.0-16.0); Immature Granulocytes Abs Auto 0.02 10^3/uL (0.00-0.03); Immature Granulocytes Pct Auto 0.3 % (0.0-0.5); Lymphocytes Absolute Auto 1.1 10^3/uL (1.2-3.8); Mean Corpuscular HGB Conc 34.0 g/dL (29.9-35.2); Mean Corpuscular Hemoglobin 29.4 pg (26.7-34.0); Mean Corpuscular Volume 86.4 fL (81.0-99.0); Platelet Count 290 10^3/uL (150-450); Red Blood Count 4.93 10^6/uL (4.20-5.40); White Blood Count 5.8 10^3/uL (4.0-11.0)
[2025-05-31 11:22] LABS: Alanine Aminotransferase 40 U/L (14-59); Albumin Globulin Ratio 1.0; Albumin Level 3.2 g/dL (3.4-5.0); Alkaline Phosphatase 66 U/L (46-116); Anion Gap 11.8; Aspartate Amino Transferase 25 U/L (15-37); Blood Urea Nitrogen 14.0 mg/dL (7.0-18.0); Calcium 8.6 mg/dL (8.5-10.1); Carbon Dioxide 27.2 mmol/L (21.0-32.0); Chloride 107 mmol/L (98-107); Cholesterol 212 mg/dL (<=200); Estimated GFR (African America >60 (>=60 mL/min/1.73m^2); Estimated GFR (Non-African Ame >60 (>=60 mL/min/1.73m^2); Free T3 2.55 pg/mL (2.18-3.98); Globulin 3.2 g/dL; Glucose 100 mg/dL (74-106); HDL Cholesterol 56 mg/dL (40-60); Potassium 4.0 mmol/L (3.5-5.1); Sodium 142 mmol/L (136-145); Thyroid Stimulating Hormone 1.572 uIU/mL (0.358-3.740); Total Protein 6.4 g/dL (6.4-8.2); Triglycerides 72 mg/dL (<=150); VLDL CHOLESTEROL 14.4 mg/dL
[2025-05-31 11:54] LABS: Iron 62.0 ug/dL (50.0-170.0)
== END 2025-05-31 10:18 | disposition home or self-care (01) ==
PROVIDERS: PCP Nurse Practitioner Family; Visit Provider Nurse Practitioner Family
DX: Z00.00 Encounter for general adult medical examination without abnormal findings (principal)
CPT/HCPCS: 36415; 80053; 80061; 82306; 83036; 83525; 83540; 84436; 84443; 84481; 85025